=== PATIENT | female | born 1955 | race Caucasian/White ===

== ENCOUNTER 2024-08-25 08:28 | Day surgery (SDC) | payer MEDICARE, SELFPAY ==
[2024-08-25 09:02] VITALS: BP 126/81; PULSE 62; RESP 17; TEMP 36.4; O2SAT 99
[2024-08-25] MEDS: LACTATED RINGERS 1,000 ML 42 ML IV (09:06)
--- NOTE | 2024-08-25 10:39 | PM.PN.IH.1 ---
Subjective Subjective Date Patient Seen: 08/25/24 Time Patient Seen: 10:40 Interval history: Patient presents for her 10 year screening colonoscopy exam. Exam Vital Signs (past 8 hours): - 08/25/24 09:02 Temperature 97.6 F Pulse Rate 62 Respiratory Rate 17 Blood Pressure 126/81 Pulse Oximetry 99 Oxygen Delivery Method Room Air Oxygen Delivery Method Room Air Const General: comfortable Orientation: alert and oriented x3 HENMT Ears: hearing grossly normal bilaterally Eyes Conjunctivae: conjunctivae normal Sclera: sclerae normal Resp Effort & Inspection: normal respiratory effort and able to speak in complete sentences Cardio Rate: regular rate GI Palpation: soft (non-tender) Extrem General: normal to inspection [facility] Medical History (Updated 08/25/24 @ 10:41 by Jono Thomas MD) Thyroid disease Surgical History (Updated 08/25/24 @ 09:06 by Jem Millard RN) 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 Plan colonoscopy, possible biopsy, possible polypectomy. The risks, benefits and options regarding the procedure were explained to the patient in detail. Risk discussion included but not limited to bleeding, perforation, missed lesions. The patient was encouraged to ask questions and they were answered to their satisfaction. The patient understands and is agreeable to proceed. Time-Based Coding :: [TOTAL MINUTES] spent with patient and on the chart (including review of chart, obtaining history, exam, reviewing outside data, placing orders, documenting exam and treatment plan, and counseling patient) on [DATE]. [employer] Document charge(s): Yes
[2024-08-25 11:21] VITALS: BP 99/62; PULSE 13; RESP 13; TEMP 36.6; O2SAT 99
[2024-08-25 11:26] VITALS: BP 101/81; PULSE 90; RESP 14; O2SAT 100
--- NOTE | 2024-08-25 11:29 | PM.OP.COLON ---
Operative Date/Time/Diagnoses Date of procedure: 08/25/24 Time of procedure: 11:30 Pre-op diagnosis: Screening colonoscopy Post-op diagnosis: same Procedure & Clinicians Study performed: Colonoscopy Same procedure(s) as scheduled: Yes Indications: Need for screening colonosocpy Surgeon: Jono Thomas Anesthesia Type: Sedation Procedure Notes SCOAP/Timeout: Performed Procedure in detail: Patient placed in left lateral recumbent position. Time out was performed. Procedural sedation was administered by anesthesia. Examination began with a thorough inspection of the perianal area. There was no evidence of fissures, fistulae, external hemorrhoids or cutaneous malignancy. The colonoscope was then placed into the rectum and the lumen was insufflated with carbon dioxide. The scope was carefully advanced forward. Ultimately the cecum was intubated and confirmed by identification of the ileocecal valve, the appendiceal orifice and the confluence of the taenia. The scope was then slowly withdrawn examining the colon thoroughly in all directions. In the rectum, retroflexion of the scope was performed for inspection of the distal rectum and anal canal. ?The colonoscopy was notable for the following: ?1. Quality of the preparation-poor, [place] 1-2 ?2. Normal exam, no polyps or lesions identified within limits of prep 3. Plan repeat screening exam in 10 years Scope withdrawal time: 9 minutes Specimen(s): none sent Complications: none Impression: Normal screening colonoscopy exam Post-procedure Recommendations: Colonoscopy in 10 years Follow up: as needed Disposition: PACU
[2024-08-25 11:31] VITALS: BP 110/78; PULSE 80; RESP 15; O2SAT 100
== END 2024-08-25 11:43 | disposition home or self-care (01) ==
PROVIDERS: Referring Provider Surgery; Visit Provider Surgery
PROC: 0DJD8ZZ Inspection of Lower Intestinal Tract, Via Natural or Artificial Opening Endoscopic (ICD-10-PCS; CPT 45378; principal; 2024-08-25 09:45)
DX: Z12.11 Encounter for screening for malignant neoplasm of colon (principal)
CPT/HCPCS: G0121; J2704